=== PATIENT | male | born 1950 | race Caucasian/White ===

== ENCOUNTER → 2016-08-08 | Outpatient (CLI) | payer MEDICARE ==
[2016-08-08 12:21] LABS: INR 2.1 (<1.1); Prothrombin Time 20.3 sec (9.0-12.0)
[2016-08-08 12:34] LABS: ALT 67 U/L (21-72); AST 49 U/L (17-59); Alkaline Phosphatase 80 U/L (38-126); Anion Gap 13 mmol/L; Blood Urea Nitrogen 16 mg/dL (9-20); Calcium 9.4 mg/dL (8.4-10.2); Carbon Dioxide 23 mmol/L (22-30); Chloride 109 mmol/L (98-107); Cholesterol 116 mg/dL (<200); Glucose 103 mg/dL (74-99); HDL Cholesterol 34 mg/dL (40-60); Magnesium 2.3 mg/dL (1.6-2.3); Non-African American GFR(MDRD) >60 (>60 ml/min/1.73 sqM); Potassium 4.9 mmol/L (3.5-5.1); Sodium 145 mmol/L (137-145); Total Bilirubin 0.7 mg/dL (0.2-1.3); Total Protein 7.6 g/dL (6.3-8.2); Triglycerides 91 mg/dL (<150)
== END ==
LOC: LABWHC1 11:37
PROVIDERS: ATTEND Internal Medicine Clinical Cardiac Electrophysiology
DX: I48.91 Unspecified atrial fibrillation (principal); I10 Essential (primary) hypertension; Z79.899 Other long term (current) drug therapy
CPT/HCPCS: 36415; 80053; 80061; 83735; 84443; 85610

== ENCOUNTER → 2018-02-07 | Outpatient (CLI) | payer MEDICARE ==
[2018-02-07 11:35] LABS: Basophils % (A) 1 %; Eosinophils # (A) 0.5 k/uL (0-0.7); Eosinophils % (A) 9 %; HCT 47.2 % (39.0-53.0); HGB 15.8 gm/dL (13.0-17.5); Lymphocytes % (A) 17 %; MCH 31.1 pg (25.0-35.0); MCHC 33.4 g/dL (31.0-37.0); Mean Platelet Volume 7.2; Monocytes # (A) 0.4 k/uL (0-1.0); Monocytes % (A) 7 %; Neutrophils # (A) 3.7 k/uL (1.3-7.7); Neutrophils % (A) 64 %; Platelet Count 140 k/uL (150-450); RBC 5.07 m/uL (4.30-5.90); RDW 13.5 % (11.5-15.5); WBC 5.8 k/uL (3.8-10.6)
[2018-02-07 11:47] LABS: ALT 49 U/L (21-72); AST 42 U/L (17-59); Albumin 4.3 g/dL (3.5-5.0); Alkaline Phosphatase 73 U/L (38-126); Anion Gap 9 mmol/L; Blood Urea Nitrogen 22 mg/dL (9-20); Calcium 9.3 mg/dL (8.4-10.2); Carbon Dioxide 25 mmol/L (22-30); Chloride 106 mmol/L (98-107); Cholesterol 145 mg/dL (<200); Glucose 113 mg/dL (74-99); HDL Cholesterol 33 mg/dL (40-60); INR 1.2 (<1.2); LDL Cholesterol,Calculated 85 mg/dL (0-99); Potassium 4.6 mmol/L (3.5-5.1); Prothrombin Time 11.4 sec (9.0-12.0); Sodium 140 mmol/L (137-145); Total Bilirubin 0.7 mg/dL (0.2-1.3); Total Protein 7.5 g/dL (6.3-8.2); Triglycerides 135 mg/dL (<150)
[2018-02-07 12:04] LABS: T4, Free (Free Thyroxine) 0.88 ng/dL (0.78-2.19)
== END | disposition home or self-care (01) ==
LOC: LABWHC1 10:59
PROVIDERS: ATTEND Internal Medicine Clinical Cardiac Electrophysiology
DX: I48.91 Unspecified atrial fibrillation (principal); I10 Essential (primary) hypertension; Z51.81 Encounter for therapeutic drug level monitoring
CPT/HCPCS: 36415; 80053; 80061; 83735; 84439; 84443; 85025; 85610

== ENCOUNTER → 2018-08-05 | Outpatient (CLI) | payer MEDICARE ==
[2018-08-06 01:59] LABS: Anion Gap 10.7 mmol/L (4.00-12.00); Calcium 9.2 mg/dL (8.7-10.3); Carbon Dioxide 24.3 mmol/L (21.6-31.8); Magnesium 2.1 mg/dL (1.5-2.4); Potassium 4.2 mmol/L (3.5-5.5)
== END | disposition home or self-care (01) ==
LOC: LABWHC1 16:46
PROVIDERS: ATTEND Internal Medicine Clinical Cardiac Electrophysiology
DX: I48.91 Unspecified atrial fibrillation (principal); Z79.899 Other long term (current) drug therapy
CPT/HCPCS: 36415; 80048; 83735; 84443

== ENCOUNTER → 2019-02-03 | Outpatient (CLI) | payer MEDICARE ==
[2019-02-04 00:52] LABS: African American GFR (CKD) 102.8 (60.0-200.0); Anion Gap 7.1 mmol/L (4.00-12.00); BUN/Creat Ratio 14.44 Ratio (12.00-20.00); Calcium 9.3 mg/dL (8.7-10.3); Carbon Dioxide 26.9 mmol/L (21.6-31.8); Magnesium 2.1 mg/dL (1.5-2.4)
== END | disposition home or self-care (01) ==
LOC: LABWHC1 15:27
PROVIDERS: ATTEND Nurse Practitioner Adult Health
DX: Z51.81 Encounter for therapeutic drug level monitoring (principal); I10 Essential (primary) hypertension
CPT/HCPCS: 36415; 80048; 83735

== ENCOUNTER → 2020-02-08 | Day surgery (SDC) | payer MEDICARE ==
[2020-02-02 15:17] VITALS: BMI 31.8
[~2020-02-08] MED LIST: LIDOCAINE 1% INJ 10MG/ML (20 ML MDV) ONE; LIDOCAINE 1% INJ 10MG/ML (20 ML MDV) SQ ONE; MIDAZOLAM 2 MG/2 ML VIAL IV ONE; SODIUM CHLORIDE 0.9% 1,000 ML IV SCH; ceFAZolin 1,000 MG in SODIUM CHLORIDE 0.9% IRRIGATIO 250 ML IRRIGATION ONE
[2020-02-08 06:21] VITALS: RESP 18; TEMP 98.3
--- NOTE | 2020-02-08 08:01 | P.PCN ---
Preoperative Diagnosis: Procedure 1: Loop explant under sedation and local anesthesia. Diagnosis: Loop monitor at [facility] Patient was brought to the EP lab in a fasting state. Written informed consent was obtained prior to the procedure. The subcutaneous device was successfully explanted under local anesthesia. Preoperative antibiotics were administered. The wound was closed in layers and dressed per protocol. Result: Successful loop monitor explantation. Procedure 2: Loop monitor implant Primary physicians: Dr. Mg Child Welfare Counselor: Dr. Lewis Indication: Sick Sinus Syndrome, atrial fibrillation, recurrent dizzy spells Patient was brought to the EP lab in a fasting state. Written informed consent was obtained prior to the procedure. The left pectoral area was prepped and draped per protocol. Intravenous antibiotic was administered preoperatively. A subcutaneous Loop monitor was implanted successfully and the wound was closed per protocol. The device was programmed to detect significant sabi- arrhythmic and tachy-arrhythmic events, per protocol. Device and programming details: Programmed for AF detection and bradycardia detection Conscious sedation: Patient underwent EP procedure under conscious sedation/moderate sedation, monitoring of the level of consciousness and physiologic parameters including but not limited to vital signs and oxygenation. Patient tolerated the procedure well without any acute complications. Start time: 743 Stop time: 428
--- NOTE | 2020-02-08 08:02 | P.PRLE ---
RE: Reed Berry Dear Jorge Mcbride underwent reimplantation of loop monitor to watch for any significant bradycardia in atrial fibrillation that would change our current management strategy He tolerated the procedure well without any acute complications I made no changes in his medications Thank you for entrusting me with the care of the patient Warm regards Sincerely Eloy Lewis
[2020-02-08 09:01] VITALS: BP 129/76; PULSE 56
[2020-02-08 09:37] LABS: African American GFR (CKD) >90 (>60 ml/min/1.73 sqM); Anion Gap 5 mmol/L; Blood Urea Nitrogen 17 mg/dL (9-20); Carbon Dioxide 27 mmol/L (22-30); Chloride 104 mmol/L (98-107); Glucose 117 mg/dL (74-99); Magnesium 2.2 mg/dL (1.6-2.3); Non-African American GFR(CKD) 86 (>60 ml/min/1.73 sqM); Sodium 136 mmol/L (137-145)
[2020-02-08 09:38] LABS: Potassium 4.9 mmol/L (3.5-5.1)
--- NOTE | 2020-02-08 12:27 | P.PN ---
Progress Note - Text Patient is on dofetilide Labs are sent Sodium 136 potassium 4.9 BUN 17 creatinine 0.92 and magnesium 2.2 Glucose 117 Twelve-lead ECG shows sinus rhythm with an absolute QT interval of about 440 ms on dofetilide 250 g twice daily Patient is on ELIQUIS Patient was discharged home in stable condition
== END | disposition home or self-care (01) ==
LOC: CATHEP 05:50
PROVIDERS: ATTEND Internal Medicine Clinical Cardiac Electrophysiology
DX: I49.5 Sick sinus syndrome (principal); I48.19 Other persistent atrial fibrillation; I10 Essential (primary) hypertension; E78.5 Hyperlipidemia, unspecified; G47.33 Obstructive sleep apnea (adult) (pediatric); Z79.82 Long term (current) use of aspirin; Z79.890 Hormone replacement therapy; Z79.899 Other long term (current) drug therapy; Z82.49 Family history of ischemic heart disease and other diseases of the circulatory system
CPT/HCPCS: 93005; 80048; 83735; 33285; J2250; J0690; J2001; 33286

== ENCOUNTER → 2020-10-14 | Outpatient (CLI) | payer MEDICARE ==
[2020-10-14 14:51] LABS: HCT 48.9 % (39.0-53.0); HGB 16.9 gm/dL (13.0-17.5); MCH 32.1 pg (25.0-35.0); MCHC 34.6 g/dL (31.0-37.0); MCV 92.9 fL (80.0-100.0); Mean Platelet Volume 7.3; Platelet Count 147 k/uL (150-450); RBC 5.27 m/uL (4.30-5.90); RDW 12.7 % (11.5-15.5); WBC 5.1 k/uL (3.8-10.6)
[2020-10-14 15:00] LABS: African American GFR (CKD) >90 (>60 ml/min/1.73 sqM); Anion Gap 10 mmol/L; Blood Urea Nitrogen 13 mg/dL (9-20); Carbon Dioxide 25 mmol/L (22-30); Chloride 104 mmol/L (98-107); Non-African American GFR(CKD) 81 (>60 ml/min/1.73 sqM); Potassium 4.4 mmol/L (3.5-5.1); Sodium 139 mmol/L (137-145)
== END | disposition home or self-care (01) ==
LOC: LABPAT 13:22
PROVIDERS: ATTEND Internal Medicine Clinical Cardiac Electrophysiology
DX: Z01.812 Encounter for preprocedural laboratory examination (principal); I44.1 Atrioventricular block, second degree
CPT/HCPCS: 80051; 82565; 84520; 85027

== ENCOUNTER 2020-10-17 09:39 | Day surgery (SDC) | payer MEDICARE ==
[2020-10-16 10:06] VITALS: BMI 32.4
[~2020-10-17 09:39] MED LIST changes: -LIDOCAINE 1% INJ 10MG/ML (20 ML MDV) ONE; -LIDOCAINE 1% INJ 10MG/ML (20 ML MDV) SQ ONE; -MIDAZOLAM 2 MG/2 ML VIAL IV ONE; +ceFAZolin 1 GM in SODIUM CHLORIDE 0.9% 250 ML IRRIGATION PRN; -ceFAZolin 1,000 MG in SODIUM CHLORIDE 0.9% IRRIGATIO 250 ML IRRIGATION ONE
[2020-10-17] MEDS ORDERED: LIDOCAINE 1% INJ 10MG/ML (20 ML MDV) ONE (12:36)
[2020-10-17] MEDS ORDERED: diphenhydrAMINE 50 MG/ML 1 ML VIAL ONE (12:40)
[2020-10-17] MEDS ORDERED: PROPOFOL 10 MG/ML 20 ML VIAL IV ONE (12:40)
[2020-10-17] MEDS ORDERED: MIDAZOLAM 2 MG/2 ML VIAL ONE (12:40)
[2020-10-17] MEDS ORDERED: fentaNYL (PF) 50 MCG/ML 2 ML AMP ONE (12:40)
[2020-10-17] MEDS ORDERED: IOPAMIDOL-370 50ML BTL INJ ONE (12:58)
[2020-10-17] MEDS ORDERED: LIDOCAINE 1% INJ 10MG/ML (20 ML MDV) SQ ONE (13:25)
[2020-10-17] MEDS: LIDOCAINE 1% INJ 10MG/ML (20 ML MDV) SQ ONE (13:30)
--- NOTE | 2020-10-17 15:44 | P.EPPROC ---
- EP Procedure Note Electrophysiology Procedure Note: Procedure Biventricular pacemaker implantation with His bundle pacing Diagnosis Sick Sinus Syndrome Symptomatic Mobitz 2 AV block with presyncope History of persistent atrial fibrillation, on dofetilide Hypertension Plan Continue anticoagulation dofetilide for now
--- NOTE | 2020-10-17 15:45 | P.PRLE ---
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 He has a history of sick sinus syndrome with chronotropic incompetence and persistent atrial fibrillation He tolerated the procedure well without any acute complications Procedure Biventricular pacemaker implantation with His bundle pacing Diagnosis Sick Sinus Syndrome Symptomatic Mobitz 2 AV block with presyncope History of persistent atrial fibrillation, on dofetilide Hypertension Plan Continue anticoagulation dofetilide for now Thank you for entrusting me with the care of the patient Warm regards Sincerely Eloy Lewis
[2020-10-17] MEDS ORDERED: ACETAMINOPHEN TAB 325 MG TAB PO PRN (15:47)
--- NOTE | 2020-10-17 16:53 | CE ---
CARDIAC ELECTROPHYSIOLOGY REPORT Reed Berry is a 70-year-old male patient who has sick sinus syndrome and persistent atrial fibrillation, on dofetilide, who is not on any chronotropic or AV alejandrina-blocking drugs. He has a loop monitor implanted and this detected Mobitz 2 AV block, symptomatic, associated with dizziness. He was brought in for a dual-chamber pacemaker with biventricular pacing since his MD interval was prolonged and he is high risk of RV pacing with standard dual-chamber pacing. Left upper extremity venogram was first performed, and 15 mL of dye was injected through the left arm. He did not have any allergic reaction at all. The subclavian and axillary veins along with the innominate veins were found to be patent. Therefore we proceeded with the planned biventricular pacemaker with physiologic septal pacing. The left pectoral area were prepped and draped as per protocol. Lidocaine 1% was used for local anesthesia. A 4 cm incision was made parallel to the deltopectoral groove, about 1.5 cm medial to it. The incision was carried down to the level of the pectoralis muscle. A subfascial pocket was made. Hemostasis was assured. The left axillary vein was accessed at 3 separate points under fluoroscopy, and via appropriately sized introducer sheaths, 3 leads were positioned. Implantation of the RV and the His bundle lead was difficult on account of cardiac rotation. First the RV lead was positioned in the RV apex. Multiple attempts had to be made to find a good RV apical position. This was a Medtronic model #5076, 58 cm in length, and serial number [id number], that was implanted in the RV apex. Pacing impedance was 1400 ohms, R-waves 12 mV and pacing threshold 0.6 V at 0.5 milliseconds. Ten-volt test was negative. His bundle lead was then positioned in the distal His bundle area. The HV interval at this site was about 50 milliseconds. A clear current of injury was noted after screwing in the lead. Nonselective capture was noted right down to 0.8 V at 1 millisecond followed by RV capture. The lead remained stable after sheath was removed. The pacing impedance was 648 ohms, R-waves 7.8 mV. Loss of RV capture at 0.4 V at 1 millisecond. His bundle lead positioning was difficult on account of cardiac rotation. Multiple attempts had to be made to avoid a more atrial position as well as a more ventricular position. Left bundle pacing was also attempted, but we could not capture the left bundle. Finally, an excellent His bundle position with nonselective capture and excellent thresholds of nonselective capture at 0.8 V at 1 millisecond was obtained. The atrial lead was then screwed in the right atrial appendage. The P-waves were 2.6 V, pacing impedance 0.5 V at 0.5 milliseconds. Ten-volt test was negative. Pacing impedance of 974 ohms. This was a Medtronic model #5076, 52 cm length, and serial number [id number]. The His bundle lead was a Medtronic model #3830, 69 cm in length, and serial number [id number]. The leads and the generator were then placed in the subfascial pocket and the wound was closed in 3 layers and dressed per protocol. The generator implanted was a CRTP Jackie model number W1TR02, serial number [id number]. The patient tolerated the procedure well without any acute complications. PLAN: Pacing mode DDDR 50 to 120 ppm. AV node Wenckebach block is somewhere between 120 and 130 beats per minute when pacing the high right atrium. The pacing was programmed to DDDR with an AV delay of 254/280 milliseconds. Preferential His bundle pacing has been programmed to avoid RV pacing. MMODL / IJN: [id number] /
[2020-10-17] MEDS ORDERED: ACETAMINOPHEN IV (For NPO) 1,000 MG in EMPTY BAG 1 BAG IVPB ONE (17:00)
--- NOTE | 2020-10-17 17:33 | XR ---
EXAMINATION TYPE: XR chest 1V portable DATE OF EXAM: 10/17/2020 HISTORY: Shortness of breath. COMPARISON: 01/01/2016 TECHNIQUE: Single view of the chest is submitted. FINDINGS: Demonstrated are scattered senescent parenchymal change. There is no evidence for focal infiltrate. The heart is stable. Hilar and mediastinal structures are within normal limits. Degenerative changes are seen of the dorsal spine. IMPRESSION: 1. Chronic changes without evidence for acute pulmonary disease.
[2020-10-17] MEDS: HYDROcodone/APAP 5-325MG 1 EACH TAB PO PRN ×2 (19:33→23:30)
[2020-10-17] MEDS: APIXABAN 5 MG TAB PO SCH (20:05)
[2020-10-17] MEDS: MAGNESIUM OXIDE 400 MG TAB PO SCH (20:05)
[2020-10-17] MEDS: DOFETILIDE 250 MCG CAP PO SCH (20:06)
[2020-10-17] MEDS ORDERED: lisinopriL 5 MG TAB PO SCH (21:00)
[2020-10-18] MEDS ORDERED: SODIUM CHLORIDE 0.9% 1,000 ML IV SCH ×2 (06:00)
[2020-10-18] MEDS ORDERED: VANCOMYCIN 1,500 MG in SODIUM CHLORIDE 0.9% 250 ML IVPB ONE (06:00)
[2020-10-18] MEDS ORDERED: LEVOTHYROXINE 100 MCG TAB PO SCH (06:30)
[2020-10-18] MEDS ORDERED: SODIUM CHLORIDE 0.9% 1,000 ML IV ONE (06:55)
[2020-10-18] MEDS ORDERED: VANCOMYCIN 1,000 MG in SODIUM CHLORIDE 0.9% IRRIGATIO 1,000 ML IRRIGATION ONE (07:00)
[2020-10-18] MEDS ORDERED: HYDROcodone/APAP 5-325MG 1 EACH TAB PO PRN (07:23)
[2020-10-18] MEDS ORDERED: ACETAMINOPHEN TAB 325 MG TAB PO PRN (07:23)
[2020-10-18] MEDS ORDERED: LIDOCAINE 1% INJ 10MG/ML (20 ML MDV) ONE (07:29)
[2020-10-18] MEDS ORDERED: MIDAZOLAM 2 MG/2 ML VIAL IV ONE (07:30)
[2020-10-18] MEDS ORDERED: fentaNYL (PF) 50 MCG/ML 2 ML AMP ONE (07:32)
[2020-10-18] MEDS: fentaNYL (PF) 50 MCG/ML 2 ML AMP IV ONE ×2 (07:35→08:13)
[2020-10-18] MEDS ORDERED: LIDOCAINE 1% INJ 10MG/ML (20 ML MDV) SQ ONE ×2 (07:35→07:47)
[2020-10-18] MEDS ORDERED: ACETAMINOPHEN IV (For NPO) 1,000 MG in EMPTY BAG 1 BAG IVPB ONE (08:00)
[2020-10-18] MEDS: LIDOCAINE 1% INJ 10MG/ML (20 ML MDV) SQ ONE (08:14)
--- NOTE | 2020-10-18 08:27 | P.PCN ---
Preoperative Diagnosis: Patient underwent EP procedure under conscious sedation/moderate sedation, monitoring of the level of consciousness and physiologic parameters including but not limited to vital signs and oxygenation. Patient tolerated the procedure well without any acute complications. Start time: 733 Stop time: 822
--- NOTE | 2020-10-18 08:29 | P.EPPROC ---
- EP Procedure Note Electrophysiology Procedure Note: Procedure Atrial lead revision Indication Dislodgment of the atrial lead Procedure details Impression was brought to the EP lab in a fasting state. Written informed consent was obtained prior to the procedure. The left shoulder area was reprepped and draped as a protocol Patient received IV Kefzol overnight and then IV vancomycin this morning starting at 5 AM Local anesthesia and sedation was provided An incision was made directly over the previous surgical site and carried down to level of the generator The generator was explanted Atrial lead is freed The atrial lead was unscrewed and then repositioned in the right atrial appendage Excellent contact Final thresholds 1.2 V at 0.5 ms P waves between 1.3-1.8 mV Lead was stable The patient was asked to cough on multiple occasions and take deep breaths With mechanical motion the lead was stable Lead was then connected to the pacemaker generator and the wound was flushed with antibiotics solution and then closed in 3 layers Plan 2 more doses of IV antibiotics Chest x-ray and discharge home this evening if stable
[2020-10-18] MEDS ORDERED: ASPIRIN 81 MG PO SCH (09:00)
[2020-10-18] MEDS ORDERED: methIMAzole 5 MG TAB PO SCH (09:00)
[2020-10-18] MEDS ORDERED: SPIRONOLACTONE 25 MG TAB PO SCH (09:00)
[2020-10-18] MEDS: HYDROcodone/APAP 5-325MG 1 EACH TAB PO PRN (09:40)
[2020-10-18] MEDS: MAGNESIUM OXIDE 400 MG TAB PO SCH (09:41)
[2020-10-18] MEDS: APIXABAN 5 MG TAB PO SCH (09:41)
[2020-10-18] MEDS: DOFETILIDE 250 MCG CAP PO SCH (09:42)
[2020-10-18 10:41] VITALS: RESP 18
[2020-10-18 10:45] VITALS: PULSE 68
--- NOTE | 2020-10-18 11:50 | XR ---
EXAMINATION TYPE: XR chest 1V portable DATE OF EXAM: 10/18/2020 COMPARISON: Chest x-ray 10/17/2020 HISTORY: Lead placement check TECHNIQUE: Single frontal view of the chest is obtained. FINDINGS: Generator is present in left pectoral region, there are leads in right atrium and ventricl e, right atrial lead shows an upturned appearance compared to prior exam. There is a loop recorder ov er the left lower chest. There is no evident pneumothorax or pleural effusion. Cardiac mediastinal si lhouette is not significantly changed. IMPRESSION: Leads as described. No evident comp occasions status post lead placement
--- NOTE | 2020-10-18 13:10 | P.DS ---
Providers Attending physician: Eloy Lewis Primary care physician: Jorge Otoole [facility] Course: INTERVAL HISTORY: The patient is a 70-year-old male admitted to the hospital by Dr. Lewis. Patient has history of sick sinus syndrome, symptomatic type II AV block Mobitz type II, persistent atrial fibrillation on dofetilide, hypertension. Patient underwent Biventricular pacemaker implantation with His bundle pacing on 10/17/20 patient was newly discovered Mobitz 2 block with presyncope. Today, patient underwent atrial lead revision with Dr. Lewis. Patient is stable after procedure. Vital signs stable. Chest xray this morning after procedure stable, no evident of complications status post lead placement. Plan is for patient to receive his 2 more doses of IV cefazolin antibiotics before discharge. PHYSICAL EXAMINATION: Blood pressure 127/74, heart rate 68, respirations 16, temp 98.2. Patient is 94-96 % on room air. HEART: S1, S2 normal. LUNGS: Clear to auscultation. NECK: Supple. ABDOMEN: Soft. EXTREMITIES: 2+ peripheral pulses. FINAL IMPRESSION: 1. Sick Sinus syndrome 2. Symptomatic type II AV block Mobitz type II 3. Persistent atrial fibrillation on eliquis and dofetilide 4. Hypertension PLAN: Patient may be able to be discharged home today after 2 doses of IV antibiotics. Keflex 500mg for 3 doses were sent to the pharmacy. We will make him a follow-up appointment with Dr. Lewis on 10/22/20 at 2:30pm. Plan - Discharge Summary Discharge Rx Participant: No New Discharge Prescriptions: Continue Spironolactone [Aldactone] 25 mg PO DAILY Dofetilide [Tikosyn] 250 mcg PO Q12HR Aspirin EC [Ecotrin Low Dose] 81 mg PO DAILY Magnesium Chloride [Mag64] 64 mg PO BID Kelp 650 mg PO DAILY Apixaban [Eliquis] 5 mg PO BID Cholecalciferol (Vitamin D3) [Vitamin D3] 5,000 unit PO DAILY HYDROcodone/APAP 5-325MG [[place] 5-325] 1 tab PO Q8H PRN PRN Reason: Pain Levothyroxine Sodium [Synthroid] 100 mcg PO DAILY lisinopriL [Prinivil] 5 mg PO HS methIMAzole [Methimazole] 1.25 mg PO DAILY Zolpidem [Ambien] 10 mg PO HS PRN PRN Reason: Insomnia Discharge Medication List Aspirin EC [Ecotrin Low Dose] 81 mg PO DAILY 12/23/15 [History] Dofetilide [Tikosyn] 250 mcg PO Q12HR 12/23/15 [History] Magnesium Chloride [Mag64] 64 mg PO BID 12/23/15 [History] Spironolactone [Aldactone] 25 mg PO DAILY 12/23/15 [History] Apixaban [Eliquis] 5 mg PO BID 11/16/19 [History] Cholecalciferol (Vitamin D3) [Vitamin D3] 5,000 unit PO DAILY 11/16/19 [History] HYDROcodone/APAP 5-325MG [[place]ram 5-325] 1 tab PO Q8H PRN 11/16/19 [History] Kelp 650 mg PO DAILY 11/16/19 [History] Levothyroxine Sodium [Synthroid] 100 mcg PO DAILY 11/16/19 [History] Zolpidem [Ambien] 10 mg PO HS PRN 11/16/19 [History] lisinopriL [Prinivil] 5 mg PO HS 11/16/19 [History] methIMAzole [Methimazole] 1.25 mg PO DAILY 11/16/19 [History] Follow up Appointment(s)/Referral(s): Eloy Lewis MD [STAFF PHYSICIAN] - 10/22/20 2:30 pm (Device clinic follow-up one week 10/22/20 @ 2:[address] Lewis in 4 months 02/28/21 @ 4:00) Activity/Diet/Wound Care/Special Instructions: PATIENT EDUCATION MATERIAL Instructions following a heart rhythm device implant. 1. Keep dressing DRY for 5 DAYS. You may cover the area with Saran or Cling Wrap, prior to a shower. 2. The dressing will be removed in the Device Clinic at [facility]. Absorbable sutures were used to close the wound. 3. Avoid raising the left arm above the shoulder level. 4 week restriction 4. Avoid arm movements, like backscratching, rubbing the head, or pulling on a cord. 4 weeks restriction 5. Gentle range of motion movements of the shoulder, closest to the incision should be performed to avoid a frozen shoulder. (Pendulum exercises of the shoulder) 6. The opposite arm may be used freely. 7. Avoid driving for 7 days. 8. Avoid activities such as golfing, swimming, weed whacking, lifting more than 10 pounds weight, bowling, gymnastics and weight training/lifting. (6 weeks restriction) 9. Activities such as wood chopping with an axe, pull-ups in the gymnasium, power lifting, arc-welding, being close to home induction cooktops will always be a problem. 10. Arm sling is only a reminder not to raise the arm above the head. You do not need to keep the arm completely immobilized. Your free to move the arm and use it and for normal activities. In case of any problems, please call [facility], [place], @ [phone], Attention: Device Clinic Device clinic follow-up in 5 days Follow-up with primary chemistry lecturer in 3-4 months Discharge Disposition: HOME SELF-CARE
[2020-10-18 15:22] VITALS: BP 130/77; TEMP 98.6
== END 2020-10-18 16:17 | disposition home or self-care (01) ==
LOC: CATHEP 09:39 → 6NMEDSUR 15:40 → CATHEP 10-18 16:17
PROVIDERS: ATTEND Internal Medicine Clinical Cardiac Electrophysiology
DX: I49.5 Sick sinus syndrome (principal); I44.1 Atrioventricular block, second degree; Z79.01 Long term (current) use of anticoagulants; I48.19 Other persistent atrial fibrillation; I10 Essential (primary) hypertension; Z79.899 Other long term (current) drug therapy; E78.5 Hyperlipidemia, unspecified; Z82.49 Family history of ischemic heart disease and other diseases of the circulatory system; I08.1 Rheumatic disorders of both mitral and tricuspid valves; I48.92 Unspecified atrial flutter; G47.33 Obstructive sleep apnea (adult) (pediatric); Z79.82 Long term (current) use of aspirin
CPT/HCPCS: 33225; 33208; 33215; 87635; 71045 ×2; C1769 ×4; C1887; C1892; C1898; C2621; J2250 ×2; J3370; J1200; J0690 ×2; J2001 ×2; J3010 ×2; J2704; Q9967

== ENCOUNTER → 2022-04-03 | Outpatient (CLI) | payer MEDICARE | END | disposition home or self-care (01) | LOC: LABWHC1 11:27 | PROVIDERS: ATTEND Internal Medicine Interventional Cardiology | DX: I48.19 Other persistent atrial fibrillation (principal) | CPT/HCPCS: 36415; 84439; 84443 ==

== ENCOUNTER → 2022-05-22 | Outpatient (CLI) | payer MEDICARE | END | disposition home or self-care (01) | LOC: LABWHC1 14:45 | PROVIDERS: ATTEND Nurse Practitioner Adult Health | DX: I48.19 Other persistent atrial fibrillation (principal) | CPT/HCPCS: 36415; 84443 ==

== ENCOUNTER → 2022-08-12 | Outpatient (CLI) | payer MEDICARE ==
[2022-08-12 23:43] LABS: Albumin 4.4 g/dL (3.8-4.9); Albumin/Globulin Ratio 1.47 (1.60-3.17); Anion Gap 11.4 mmol/L (10.00-18.00); BUN/Creat Ratio 19.8 Ratio (12.00-20.00); Blood Urea Nitrogen 19.8 mg/dL (9.0-27.0); Calcium 9.6 mg/dL (8.7-10.3); Carbon Dioxide 26.6 mmol/L (20.0-27.5); Magnesium 2.2 mg/dL (1.5-2.4); Non-African American GFR(CKD) 75.9 (60.0-200.0); Potassium 4.7 mmol/L (3.5-5.5); Total Bilirubin 0.5 mg/dL (0.30-1.20); Total Protein 7.4 g/dL (6.2-8.2)
== END | disposition home or self-care (01) ==
LOC: LABWHC1 15:31
PROVIDERS: ATTEND Nurse Practitioner Adult Health
DX: Z51.81 Encounter for therapeutic drug level monitoring (principal); I10 Essential (primary) hypertension
CPT/HCPCS: 36415; 80053; 83735; 84443

== ENCOUNTER → 2023-12-27 | Outpatient (CLI) | payer MEDICARE ==
[2023-12-27 14:44] VITALS: BP 133/87; PULSE 67; RESP 16; TEMP 97.7
--- NOTE | 2023-12-27 15:25 | P.SLEEP ---
History of Present Illness DATE: 12/27/2023 CONSULTATION/NEW PATIENT EVALUATION HISTORY OF PRESENT ILLNESS/SLEEP-WAKE EVALUATION: 73-year-old gentleman had b een evaluated in the sleep center for obstructive sleep apnea hypopnea syndrome. Patient had been diagnosed with obstructive sleep apnea hypopnea syndrome more than 10 years ago, was started on PAP treatment, but was not able to use CPAP therapy. SLEEP SCHEDULE: Usually sleep schedule from 10 PM to 6 AM 7 days a week. FALLING ASLEEP: Patient has problems with falling asleep, has TV set in bedroom. DURING SLEEP: Patient usually sleeps on the back position and wakes up from sleep up to 5 times. No history of hypnogogical hallucinations, sleep paralysis, or cataplexy. DURING THE DAY/WAKE STATE: In the morning patient wake up tired, has difficulties to pay attention, falling asleep during the day, has problems with memory, concentration, episodes of depression and anxiety. [place] sleepiness scale is significantly increased to 16. Patient takes nap after lunch. PAST MEDICAL HISTORY: Hypertension, hypothyroidism, atrial flutter, hyperlipidemia. PAST SURGICAL HISTORY: Permanent pacemaker insertion. MEDICATIONS: Please see below. SOCIAL HISTORY: Please see below. FAMILY HISTORY: Heart problems, stroke, cancer. REVIEW OF SYSTEMS: Multiple awakenings from sleep, sleepiness during the day. No fevers. No double vision. No recent chest pain. No shortness of breath. No abdominal pain. No bleeding episodes. No blood in urine. No seizure episodes. PHYSICAL EXAMINATION: GENERAL: A pleasant patient without any distress. VITAL SIGNS: Please see below, weight 217.6 pounds, BMI 33.7. HEENT: PERRLA, EOMI. Evaluation of oropharynx showed tongue protrudes midline, low position of soft palate Mallampati 4. NECK: Supple. No JVD. Thyroid is not palpable. 18 inches in circumference. LUNGS: Clear to percussion and to auscultation. Good air exchange. No wheezing or rhonchi. HEART: S1, S2 regular. No murmurs, gallops or rubs. ABDOMEN: Soft and nontender. Bowel sounds are present. No organomegaly appreciated. EXTREMITIES: No clubbing or cyanosis. COST ACCOUNTING MANAGER: Awake, alert, and oriented x3. Cranial nerves 2 to 7 intact. There is no fasciculation or atrophy noted. No focal deficits observed. ASSESSMENT: 1. Multiple awakenings from sleep, extremely low position of soft palate Mallampati 4, wide neck 18 inches in circumference, significant sleepiness [place] Sleepiness Scale increased to 16, history of obstructive sleep apnea hypopnea syndrome in the past. Obstructive sleep apnea hypopnea syndrome. 2. Obesity BMI 33.7. 3. History of atrial flutter. 4. Hypertension. 5. Hypothyroidism. 6 . Hyperlipidemia. 7. Status post permanent pacemaker insertion. PLAN: 1. Polysomnography for evaluation of patient's breathing during sleep. 2. Following plan after reading sleep study. 3. Preferable position during sleep on the side. 4. No driving if patient feels any sleepiness. Patient is aware of civil and criminal liability for unsafe driving. 5. Sleep hygiene with regular sleep time for at least 7.5-8 hours. 6. Watching and losing weight. Thank you very much for referring this patient for consultation. Sincerely, Lyle Diaz MD, PhD, FAASM. Diplomat of [place] [employer], Sleep Medicine Board by [place] [employer] [place] [employer] [facility] [place] cc: Jorge Otoole DO, Eloy Lewis MD Past Medical History Past Medical History: Atrial Fibrillation, GERD/Reflux, Hyperlipidemia, Hypertension, Sleep Apnea/CPAP/BIPAP, Thyroid Disorder Additional Past Medical History / Comment(s): see Dr Lewis H&P, no cpap used, History of Any Multi-Drug Resistant Organisms: None Reported Past Surgical History: Cardiac Ablation, Cholecystectomy, Heart Catheterization, Pacemaker, Tonsillectomy Additional Past Surgical History / Comment(s): CARDIOVERSION, CARDIAC ABLATION X 3, sinus surgery, loop recorder Past Anesthesia/Blood Transfusion Reactions: Previous Problems w/ Anesthesia, Motion Sickness, Postoperative Nausea & Vomiting (PONV) Additional Past Anesthesia/Blood Transfusion Reaction / Comment(s): WOKE UP DURING ONE OF HIS HEART ABLATION AT [facility] Type of Cardiac Device: Loop, Permanent Pacemaker Device Placement Date:: about 3 yrs Past Psychological History: Anxiety Smoking Status: Never smoker Past Alcohol Use History: Rare Past Drug Use History: None Reported - Past Family History Mother Family Medical History: Cancer Medications and Allergies Home Medications Medication Instructions Recorded Confirmed Type Aspirin EC [Ecotrin Low Dose] 81 mg PO DAILY 12/22/12/27/23 History Dofetilide [Tikosyn] 250 mcg PO Q12HR 12/23/15 10/17/20 History Magnesium Chloride [Mag64] 64 mg PO BID 12/23/15 12/27/23 History Spironolactone [Aldactone] 25 mg PO DAILY 12/23/15 12/27/23 History Apixaban [Eliquis] 5 mg PO BID 11/16/19 12/27/23 History Cholecalciferol (Vitamin D3) 5,000 unit PO DAILY 11/16/19 12/27/23 History [Vitamin D3] HYDROcodone/APAP 5-325MG [[place] 1 tab PO Q8H PRN 11/16/19 10/17/20 History 5-325] Kelp 650 mg PO DAILY 11/16/19 10/17/20 History Levothyroxine Sodium [Synthroid] 100 mcg PO DAILY 11/16/19 12/27/23 History Zolpidem [Ambien] 10 mg PO HS PRN 11/16/19 10/17/20 History lisinopriL [Prinivil] 5 mg PO HS 11/16/19 12/27/23 History methIMAzole [Methimazole] 1.25 mg PO DAILY 11/16/19 10/17/20 History Rosuvastatin [Crestor] 20 mg PO DAILY 12/27/23 12/27/23 History Allergies Allergy/AdvReac Type Severity Reaction Status Date / Time shellfish derived [Shellfish] Allergy Abdominal Verified 10/17/20 10:34 Pain/hives Physical Exam Vitals: Vital Signs Temp Pulse Resp BP Pulse Ox 12/27/23 14:41 97.7 F 67 16 133/87 93 L Intake and Output 12/27/23 12/27/23 12/27/23 06:59 14:59 22:59 Other: Weight 98.43 kg Sleep Note - Sleep Data ESS Total: 16 - Sleep Note Sleep Note: Temperature: 97.7 F Pulse Rate: 67 Respiratory Rate: 16 Blood Pressure: 133/87 SpO2: 93 Height: 5 ft 7.25 in Weight: 98.43 kg BMI: Neck Circumference: 18
== END ==
LOC: 3 N SLEEP 14:09
PROVIDERS: ATTEND Internal Medicine
DX: G47.33 Obstructive sleep apnea (adult) (pediatric) (principal); E66.9 Obesity, unspecified; I10 Essential (primary) hypertension; E03.9 Hypothyroidism, unspecified; E78.5 Hyperlipidemia, unspecified; I48.92 Unspecified atrial flutter; Z95.0 Presence of cardiac pacemaker; Z68.33 Body mass index [BMI] 33.0-33.9, adult; Z79.01 Long term (current) use of anticoagulants; Z91.013 Allergy to seafood; Z79.890 Hormone replacement therapy; Z79.899 Other long term (current) drug therapy
CPT/HCPCS: 99211

== ENCOUNTER 2024-01-24 19:27 | Outpatient (CLI) | payer MEDICARE ==
--- NOTE | 2024-01-26 13:53 | P.PCN ---
Description of Procedure: POLYSOMNOGRAPHY REPORT PROCEDURE(S)/DATE(S): Polysomnography 01/24/2024 CLINICAL: Patient has been seen in the sleep center for evaluation of obstructive sleep apnea-hypopnea syndrome. Please see my consultation. Sleep study has been done for evaluation of patient breathing during the sleep. PROCEDURE: The standard montage for clinical polysomnography included the electroencephalogram, the electrooculogram, the mentalis surface electromyography and Lead II cardiography. The respiratory battery consisted of measurements of nasal/buccal air flow, pressure transducer measurements from nose, thoracic and/or abdominal effort and intercostal surface electromyography. Video monitoring has been done to check for any parasomnia events. Nocturnal oxyhemoglobin saturations were obtained by finger oximetry. Step-eric titration with positive airway pressure was utilized to control the respiratory events, if necessary. RESULTS: During the diagnostic sleep study sleep efficiency was extremely short 28.0%. Latency to sleep onset was was prolonged to 49.0 min. Sleep architectu re showed stage NI was extremely high 27.0%, Delta sleep was absent 0%, REM sleep was short 5.3%. Respiratory channel showed 0 obstructive apneas, 0 mixed apneas, 0 central apneas, 24 hypopneas with lowest oxygen level 84%. Total apnea hypopnea index was 11.8. Heart rate was in the range between 52 and 76, average 60 by computer calculation. EMG showed totally 22 leg movements. IMPRESSIONS: 1. Extremely low sleep efficiency. Abnormalities of respiration have been documented, but patient slept only for 122 minutes, which does not allow to make any conclusions following rules. Please see other impressions from consultation PLAN: 1. We will proceed with home sleep apnea test. 2. Losing weight program. 3. Sleep hygiene with regular time in bed for at least 7-1/2 hours. 4. No driving if feeling sleepiness. 5. Please check iron profile including ferritin level. Low level of iron may increase the risk for periodic limb movements. Thank you very much for allowing me to participate in the management of your patient. Sincerely, Lyle Diaz MD, PhD, FAASM. Diplomat of [place] [employer], Sleep Medicine Board by [place] [employer] Manager [employer] [facility] [place]
== END 2024-01-25 05:42 | disposition home or self-care (01) ==
LOC: 3 N SLEEP 19:27
PROVIDERS: ATTEND Internal Medicine
CPT/HCPCS: 95810

== ENCOUNTER → 2024-03-07 | Outpatient (CLI) | payer MEDICARE ==
--- NOTE | 2024-03-09 13:31 | P.PCN ---
Description of Procedure: CLINICAL: A home sleep apnea test has been done for confirmation of possible obstructive sleep apnea-hypopnea syndrome. DESCRIPTION OF PROCEDURE: RESULTS: Recording time was 9 hours 55 minutes. Evaluation time was 8 hours 34 minutes. Evaluation time is sufficient for making conclusion about results of the test. Raw data of sleep recording has been reviewed and is adequate. Respiratory channel showed 104 apneas and 283 hypopneas. Apnea-hypopnea index was 45.2 per hour. Pulse rate in the range between minimum 59, maximum 212, average 65 by computer calculation. Lowest desaturation was 69%. IMPRESSION: 1. Extremely severe Obstructive Sleep Apnea Hypopnea Syndrome with severe oxygen desaturation. Please see other impressions from consultation. PLAN: 1. The patient should have PAP titration for correction of respiratory abnormallities during sleep. 2. Sleep hygiene with regular time in bed for at least 8 hours. 3. Watching and losing weight. 4. No driving if feeling any sleepiness. Thank you very much for allowing me to participate in the management of your patient. Sincerely, Lyle Diaz MD, PhD, FAASM Diplomat of [place] [employer] Sleep Medicine Board of [place] [employer] Marketing Sales Manager of [facility] [place] cc: Jorge Otoole DO
== END | disposition home or self-care (01) ==
LOC: 3 N SLEEP 16:34
PROVIDERS: ATTEND Internal Medicine

== ENCOUNTER 2024-04-03 19:08 | Outpatient (CLI) | payer MEDICARE ==
--- NOTE | 2024-04-13 11:22 | P.PCN ---
Description of Procedure: CLINICAL: Titration with positive air pressure has been done for correction of respiratory abnormalities during sleep. DESCRIPTION OF PROCEDURE: The standard montage for clinical polysomnography included the electroencephalogram, the electrocardiogram, the mentalis surface electromyography and Lead II cardiography. The respiratory battery consisted of measurements of nasal /buccal air flow, pressure transducer measurements from the nose, thoracic and /or abdominal effort and intercostal surface electromyography. Video monitoring has been done to check for any parasomnia events. Nocturnal oxyhemoglobin saturations were obtained by finger oximetry. Step-eric titration with positive airway pressure was utilized to control respiratory events. Raw data of sleep recording has been reviewed and is adequate. RESULTS: Sleep efficiency was decreased to 71.2%. Latency to sleep onset was normal 16.0 minutes.]. Sleep architecture showed stage N1 was normal 5.5%, Delta sleep was extremely short 0.3%, REM sleep was slightly decreased to 17.0%. Heart rate was minimum 84 BPM, maximum 92 BPM, average 89 BPM. EMG showed 28.8 periodic limb movements per hour with 0.6 micriarousals per hour. PAP titration have been done with CPAP up to the pressure 12 cm H2O. The best results were at the pressure 9 cm H2O. Apnea hypopnea index reduced to 2.4. IMPRESSION: 1. Obstructive sleep apnea hypopnea syndrome on controle with PAP treatment. 2. Significant periodic limb movements have been documented. Please see other impressions from consultation. PLAN: 1. The patient will have treatment with positive air pressure equipment with the level of pressure AutoPAP 6-12 cm H2O and should use it every night for the whole night. 2. Watching and losing weight. 3. Sleep hygiene with regular time in bed for at least 8 hours. 4. No driving if feeling any sleepiness. 5. I will see the patient for follow up visit to explain the results of the test, recommendations, check compliance with treatment and make any necessary adjustment related to mask fitting, pressure and humidification. 6. Please check iron profile including ferritin level. Low level of iron may increase risk for periodic limb movements Thank you very much for allowing me to participate in the management of your patient. Sincerely, Lyle Diaz MD, PhD, FAASM Diplomat of [employer] Sleep Medicine Board of [employer] Director [employer] [facility] [place] cc: Jorge Otoole DO
== END 2024-04-04 05:30 | disposition home or self-care (01) ==
LOC: 3 N SLEEP 19:08
PROVIDERS: ATTEND Internal Medicine
DX: G47.33 Obstructive sleep apnea (adult) (pediatric) (principal); G47.61 Periodic limb movement disorder; Z91.013 Allergy to seafood
CPT/HCPCS: 95811

== ENCOUNTER → 2024-08-31 | Outpatient (CLI) | payer MEDICARE ==
[2024-08-31 18:42] LABS: HCT 47.3 % (39.6-50.0); HGB 15.9 g/dL (13.0-17.0); MCH 30.9 pg (27.0-32.0); MCHC 33.6 g/dL (32.0-37.0); Mean Platelet Volume 10.8 FL (9.5-12.2); NRBC Per 100 WBC 0 X 10*3/uL (0.00-0.01); Platelet Count 142 X 10*3/uL (140-440); RBC 5.14 X 10*6/uL (4.40-5.60); RDW 12.7 % (11.5-14.5); WBC 6.48 X 10*3/uL (4.50-10.00)
[2024-08-31 19:18] LABS: Blood Urea Nitrogen 19.8 mg/dL (9.0-27.0); Carbon Dioxide 26.1 mmol/L (21.6-31.8); Chloride 101 mmol/L (96-109); Potassium 4.6 mmol/L (3.5-5.5); Sodium 138 mmol/L (135-145)
== END | disposition home or self-care (01) ==
LOC: LABWHC1 14:18
PROVIDERS: ATTEND Internal Medicine Clinical Cardiac Electrophysiology
DX: I48.19 Other persistent atrial fibrillation (principal)
CPT/HCPCS: 80051; 82565; 84520; 85027

== ENCOUNTER 2024-09-07 06:12 | Day surgery (SDC) | payer MEDICARE ==
[2024-09-06 11:38] VITALS: BMI 34.4
[~2024-09-07 06:12] MED LIST changes: +DEXAMETHASONE SOD PHOSPHATE 4 MG/ML 1 ML VIAL IV ONE; +LACTATED RINGERS 1,000 ML IV SCH; +LIDOCAINE 1% (10MG/ML) FOR IV START INTRADERMA PRN; +ONDANSETRON 4 MG/2 ML VIAL IVP ONE; -SODIUM CHLORIDE 0.9% 1,000 ML IV SCH; -ceFAZolin 1 GM in SODIUM CHLORIDE 0.9% 250 ML IRRIGATION PRN
[2024-09-07] MEDS ORDERED: fentaNYL (PF) 50 MCG/ML 2 ML AMP IVP PRN (07:00)
[2024-09-07 07:12] VITALS: RESP 16; TEMP 97.9
[2024-09-07] MEDS: IV FLUID CONTINUATION 450 ML IV ONE (07:12)
[2024-09-07 07:22] LABS: Glucose,Whole Blood 116 mg/dL (70-110)
[2024-09-07] MEDS: SODIUM CHLORIDE 0.9% 1,000 ML IV SCH ×2 (07:28→07:29)
[2024-09-07] MEDS: IV FLUID CONTINUATION 1,000 ML IV ONE (07:30)
[2024-09-07] MEDS ORDERED: LIDOCAINE 1% INJ 10MG/ML (20 ML MDV) ONE (07:44)
[2024-09-07] MEDS ORDERED: PROPOFOL 10 MG/ML 20 ML VIAL IV ONE (07:44)
--- NOTE | 2024-09-07 08:11 | P.EPPROC ---
- EP Procedure Note Electrophysiology Procedure Note: Diagnosis: Persistent atrial fibrillation, symptomatic Final diagnosis Successful facilitated electrical cardioversion with MULTAQ and a 200 J shock to sinus rhythm Patient has a biventricular pacemaker with His bundle pacing Details Under conscious sedation at 200 J shock in the AP configuration was used to convert the patient to sinus rhythm successfully Twelve-lead EKG confirmed sinus rhythm Pacemaker interrogation confirmed sinus rhythm Plan continue Multaq 400 mg twice daily Continue Eliquis Continue antihypertensive therapy Follow-up in the office in 1 week
[2024-09-07 09:53] VITALS: BP 105/71; PULSE 78
== END 2024-09-07 09:54 | disposition home or self-care (01) ==
LOC: CATHEP 06:12
PROVIDERS: ATTEND Internal Medicine Clinical Cardiac Electrophysiology
DX: I48.19 Other persistent atrial fibrillation (principal); I10 Essential (primary) hypertension; I49.5 Sick sinus syndrome; Z79.01 Long term (current) use of anticoagulants; Z79.82 Long term (current) use of aspirin; Z79.899 Other long term (current) drug therapy; Z91.013 Allergy to seafood
CPT/HCPCS: 92960; J2003; J2704

== ENCOUNTER → 2024-11-15 | Outpatient (CLI) | payer MEDICARE ==
[2024-11-15 11:46] VITALS: BP 118/82; PULSE 82; RESP 16; TEMP 98.3
--- NOTE | 2024-11-15 13:54 | P.PROGSL ---
Subjective DATE: 11/15/2024 FOLLOW UP VISIT. Patient with obstructive sleep apnea hypopnea syndrome return to sleep center for follow-up visit. This is first visit after patient received new AutoPap unit. Information from previous visit have been reviewed. Patient is using PAP equipment most of the nights, but because did not have some supplies was not able to use CPAP equipment for period of time. The patient does not have significant problems with the mask, PAP unit and humidification. [place] sleepiness scale is slightly increased to 11. I checked information from PAP unit. PAP unit pressure 6-12 cm H2O. Usage is 48% and 17% for more then 4 hours, average 3.5 hours per night. Leak is 21.6 l/m, which is in acceptable range. Apnea Hypopnea Index is 13.2, which is above normal. MEDICATIONS have been reviewed, please see below. During physical exam: GENERAL: A pleasant patient without any distress. VITAL SIGNS: Please see below, weight is 223 lbs. HEENT: PERRLA, EOMI.low position of soft palate, Mallapati 4 . NECK: Supple. No JVD. LUNGS: Clear to percussion and to auscultation. Good air exchange. No wheezing or rhonchi. HEART: S1, S2 regular. ABDOMEN: Soft and nontender. Obese EXTREMITIES: No clubbing or cyanosis. GENERAL DOC: Awake, alert, and oriented x3. No focal deficit. Impressions: 1. Obstructive sleep apnea-hypopnea syndrome. Patient demonstrated low compliance with treatment, benefiting from treatment. 2. Mild obesity. 3. History of atrial flutter. 4. Hypertension. 5. Hypothyroidism. 6. Hyperlipidemia. 7. Status post permanent pacemaker insertion. I increased range of the pressure in AutoPap unit to the range 6-15 cm of water. Plan: 1. Continue using PAP equipment every night for the whole night. Will extend trial period until next 90 days. 2. Sleep hygiene with regular time in bed for at least 7.5-8 hours 3. PAP unit should stay lower then position of the head. 4. Advised patient to remove all remaining water from humidifier canister daily and make it dry after each usage. Refill canister with fresh distilled water before each usage. 5. Watching weight. 6. Precautions related to driving. No driving if feel any sleepiness. 7. I will maintain prescription for PAP supplies including mask, tube, filters. 8. Follow up visit in 2 months or earlier if patient has any problems. Thank you very much for allowing me to participate in the management of your patient. Lyle Diaz MD, PhD, FAASM. Diplomat of [place] [employer], Sleep Medicine Board by [place] [employer] Supervisor of [facility] [place] cc: Reed Feng MD Objective - Vital Signs Vital Signs: Vital Signs Temp 98.3 F 11/15/24 11:45 Pulse 82 11/15/24 11:45 Resp 16 11/15/24 11:45 BP 118/82 11/15/24 11:45 Pulse Ox 95 11/15/24 11:45 FiO2 Intake & Output 11/14/24 11/15/24 11/15/24 18:59 06:59 18:59 Weight 101.151 kg Home Medications: Home Medications Medication Instructions Recorded Confirmed Type Aspirin EC [Ecotrin Low Dose] 81 mg PO DAILY 12/23/15 09/07/24 History Magnesium Chloride [Mag64] 64 mg PO BID 12/23/15 09/07/24 History Spironolactone [Aldactone] 25 mg PO DAILY 12/23/15 09/07/24 History Apixaban [Eliquis] 5 mg PO BID 11/16/19 09/07/24 History Levothyroxine Sodium [Synthroid] 112 mcg PO DAILY 11/16/19 09/07/24 History lisinopriL [Prinivil] 5 mg PO HS 11/16/19 09/07/24 History Rosuvastatin [Crestor] 20 mg PO DAILY 12/27/23 09/07/24 History Dronedarone [Multaq] 400 mg PO BID 09/06/24 09/07/24 History Melatonin 20 mg PO HS 09/06/24 09/07/24 History Metoprolol Succinate (ER) [Toprol 50 mg PO HS 09/06/24 09/07/24 History Xl] Metoprolol Succinate (ER) [Toprol 100 mg PO DAILY 09/06/24 09/07/24 History Xl] Sertraline [Zoloft] 50 mg PO HS 09/06/24 09/07/24 History metFORMIN HCL 500 mg PO DAILY 09/06/24 09/07/24 History
== END ==
LOC: 3 N SLEEP 10:57
PROVIDERS: ATTEND Internal Medicine
DX: G47.33 Obstructive sleep apnea (adult) (pediatric) (principal); E66.9 Obesity, unspecified; I10 Essential (primary) hypertension; E03.9 Hypothyroidism, unspecified; E78.5 Hyperlipidemia, unspecified; Z95.0 Presence of cardiac pacemaker; Z86.79 Personal history of other diseases of the circulatory system; Z91.013 Allergy to seafood
CPT/HCPCS: 99212

== ENCOUNTER → 2024-11-15 | Outpatient (CLI) | payer MEDICARE ==
[2024-11-15 16:07] LABS: Basophils # (A) 0.04 X 10*3/uL (0.00-0.10); Basophils % (A) 0.7 %; Eosinophils # (A) 0.42 X 10*3/uL (0.04-0.35); Eosinophils % (A) 7.7 %; HCT 46.1 % (39.6-50.0); HGB 15.4 g/dL (13.0-17.0); Lymphocytes % (A) 18.3 %; MCH 30.4 pg (27.0-32.0); MCHC 33.4 g/dL (32.0-37.0); MCV 90.9 FL (80.0-97.0); Mean Platelet Volume 10.8 FL (9.5-12.2); Monocytes # (A) 0.57 X 10*3/uL (0.20-1.00); Monocytes % (A) 10.5 %; NRBC Per 100 WBC 0 X 10*3/uL (0.00-0.01); Neutrophils # (A) 3.38 X 10*3/uL (1.80-7.70); Neutrophils % (A) 62.1 %; Platelet Count 144 X 10*3/uL (140-440); RBC 5.07 X 10*6/uL (4.40-5.60); RDW 13.5 % (11.5-14.5); WBC 5.45 X 10*3/uL (4.50-10.00)
[2024-11-15 18:48] LABS: ALT 49 U/L (10-49); AST 45 U/L (14-35); Albumin 4.3 g/dL (3.8-4.9); Albumin/Globulin Ratio 1.43 Ratio (1.60-3.17); Alkaline Phosphatase 86 U/L (41-126); Calcium 9.3 mg/dL (8.7-10.3); Carbon Dioxide 19.8 mmol/L (21.6-31.8); Chloride 106 mmol/L (96-109); Chol/HDL Ratio 4.68 Ratio; Glucose 132 mg/dL (70-110); LDL Cholesterol,Calculated 87.8 mg/dL (0.0-131.0); Potassium 4.6 mmol/L (3.5-5.5); Prostate Specific Antigen 1.85 ng/mL (0.000-6.500); Sodium 138 mmol/L (135-145); T4, Free (Free Thyroxine) 1.27 ng/dL (0.80-1.80); Total Bilirubin 0.6 mg/dL (0.3-1.2); Total Protein 7.3 g/dL (6.2-8.2)
== END | disposition home or self-care (01) ==
LOC: LABWHC1 10:33
PROVIDERS: ATTEND Family Medicine
DX: Z12.5 Encounter for screening for malignant neoplasm of prostate (principal); E11.65 Type 2 diabetes mellitus with hyperglycemia; E03.9 Hypothyroidism, unspecified; E78.2 Mixed hyperlipidemia; E55.9 Vitamin D deficiency, unspecified
CPT/HCPCS: 36415; 80053; 80061; 82306; 83036; 84153; 84439; 84443; 84481; 85025